=== PATIENT | male | born 1995 | race Caucasian/White ===

== ENCOUNTER 2022-09-13 08:09 | Emergency (ER) | payer MEDICAID ==
[~2022-09-13] VITALS: Ht 175.3 cm; Wt 70.0 kg
[2022-09-13 08:15] VITALS: BP 131/78
== END 2022-09-13 09:08 | disposition home or self-care (01) ==
LOC: ER 08:10
DX: Z00.00 Encounter for general adult medical examination without abnormal findings (principal); Z72.89 Other problems related to lifestyle
CPT/HCPCS: 99281

== ENCOUNTER 2022-12-10 07:53 | Inpatient (IN) | payer MEDICAID ==
[~2022-12-10] VITALS: Ht 175.3 cm; Wt 65.0 kg
[2022-12-10] MEDS ORDERED: ringers solution, lactated 500ml IV solution IV ONE (08:35)
[2022-12-10] MEDS ORDERED: LORazepam 2 mg/ml vial IV ONE ×2 (08:35→09:55)
[2022-12-10] MEDS ORDERED: ondansetron/PF 4mg/2ml inj IV ONE (08:50)
[2022-12-10] MEDS ORDERED: thiamine 100mg/ml 2ml inj. IV ONE (09:25)
[2022-12-10] MEDS ORDERED: folic acid 1mg/0.2ml inj IV ONE (09:25)
[2022-12-10] MEDS ORDERED: ringers solution, lacted 1,000 ML IV ONE (09:30)
[2022-12-10 09:45] LABS: BASOPHILS # (AUTO) 0.1 X10'3 (0-0.2); BASOPHILS % (AUTO) 0.8 % (0-1); EOSINOPHILS # (AUTO) 0.1 X10'3 (0-0.9); EOSINOPHILS % (AUTO) 1.4 % (0-6); HEMOGLOBIN 17.3 g/dl (14.0-17.9); LYMPHOCYTES # (AUTO) 2.2 X10'3 (1.1-4.8); LYMPHOCYTES % (AUTO) 30.3 % (21-51); MEAN CORPUSCULAR HEMOGLOBIN 33.3 PG (27.0-31.0); MEAN CORPUSCULAR HGB CONC 34.5 g/dL (33.0-36.5); MEAN CORPUSCULAR VOLUME 96.5 FL (78-98); MEAN PLATELET VOLUME 8.2 FL (7.4-10.4); MONOCYTES # (AUTO) 0.8 X10'3 (0-0.9); MONOCYTES % (AUTO) 10.3 % (2-12); NEUTROPHILS # (AUTO) 4.2 X10'3 (1.8-7.7); NEUTROPHILS % (AUTO) 57.2 % (42-75); PLATELET COUNT 247 X10'3 (140-440); RED BLOOD COUNT 5.18 X10'6 (4.70-6.10); RED CELL DISTRIBUTION WIDTH 13.4 % (11.5-14.5); WHITE BLOOD COUNT 7.3 X10'3 (4.5-11.0)
[2022-12-10 09:53] LABS: APTT 25 SECONDS (22-32); PROTHROMBIN TIME 9.8 SECONDS (9.0-12.0)
[2022-12-10 10:10] LABS: INR 0.9 INR
[2022-12-10] MEDS: ringers solution, lacted 1,000 ML IV SCH ×2 (10:59→11:07)
[2022-12-10 11:10] LABS: ALANINE AMINOTRANSFERASE 197 U/L (12-78); ALBUMIN 4.5 G/DL (3.4-5.0); ALBUMIN/GLOBULIN RATIO 1.3 (1.1-1.5); ALKALINE PHOSPHATASE 96 IU/L (46-116); ANION GAP 16 (8-16); ASPARTATE AMINO TRANSFERASE 218 U/L (10-37); BILIRUBIN,TOTAL 1.8 MG/DL (0.1-1.0); BLOOD UREA NITROGEN 16 MG/DL (7-18); BUN/CREATININE RATIO 20.8 (10.0-20.0); CALCIUM 9.9 MG/DL (8.5-10.1); CHLORIDE 91 MMOL/L (99-107); CREATININE 0.77 MG/DL (0.60-1.10); ETHANOL 98 MG/DL (<10); GLUCOSE 85 MG/DL (70-104); MAGNESIUM 2.3 MG/DL (1.5-2.4); PHOSPHORUS 2.8 MG/DL (2.3-4.5); SODIUM 132 MMOL/L (135-145); eCRCL 134 ML/MIN; eGFR > 90 ML/MIN
[2022-12-10 11:11] LABS: POTASSIUM 2.8 MMOL/L (3.5-5.1)
[2022-12-10] MEDS ORDERED: potassium phosphate inj 30 MMOL in normal saline 250ml IV soln 250 ML IV ONE (11:25)
[2022-12-10] MEDS: ondansetron/PF 4mg/2ml inj IV SCH ×3 (12:00→20:00)
[2022-12-10] MEDS ORDERED: mag hydrox/Alum hydrox/simeth 30ml oral suspension PO PRN ×2 (12:55→13:00)
[2022-12-10] MEDS ORDERED: haloperidol lactate 5mg/ml inj IM PRN (12:55)
[2022-12-10] MEDS ORDERED: magnesium 2GM in 50ml NS 50 ML IV PRN (13:00)
[2022-12-10] MEDS ORDERED: magnesium 4gm in 100ml NS 100 ML IV PRN (13:00)
[2022-12-10] MEDS ORDERED: magnesium hydroxide 30ml (MOM) UD suspension PO PRN (13:00)
[2022-12-10] MEDS ORDERED: acetaminophen 325mg tablet PO PRN (13:00)
[2022-12-10] MEDS ORDERED: magnesium Cl slow-release 64mg tablet PO PRN (13:00)
[2022-12-10] MEDS ORDERED: potassium Cl 40MEQ/1/2NS 520ml 520 ML IV PRN (13:00)
[2022-12-10] MEDS ORDERED: potassium Cl 20 mEq SR tablet PO PRN (13:00)
[2022-12-10] MEDS ORDERED: ondansetron/PF 4mg/2ml inj IV PRN (13:00)
[2022-12-10] MEDS: dextrose 5%-water 1,000 ML IV SCH ×2 (13:10→23:23)
[2022-12-10 13:16] LABS: URINE AMPHETAMINE SCREEN NEGATIVE (Neg); URINE BARBITUATE SCREEN NEGATIVE (Neg); URINE BENZODIAZEPINES SCREEN NEGATIVE (Neg); URINE CANNABINOID SCREEN POSITIVE (Neg); URINE COCAINE SCREEN NEGATIVE (Neg); URINE METHADONE SCREEN NEGATIVE (Neg); URINE OPIATE SCREEN NEGATIVE (Neg); URINE PHENCYCLIDINE SCREEN NEGATIVE (Neg)
--- NOTE | 2022-12-10 13:37 | NUR ---
[id number] RECEIVED REPORT FROM LUIZA RN ASSUMING CARE DURING 30 MIN LUNCH BREAK
[2022-12-10] MEDS: thiamine 100mg/ml 2ml inj. IV SCH ×2 (13:51→21:35)
[2022-12-10] MEDS: pantoprazole 40MG/NS 100ML BAG 100 ML IV SCH (13:53)
[2022-12-10] MEDS ORDERED: NO HOME MEDS (14:24)
[2022-12-10 14:58] LABS: HEMOGLOBIN 14.5 g/dl (14.0-17.9); MEAN CORPUSCULAR HEMOGLOBIN 33.6 PG (27.0-31.0); MEAN CORPUSCULAR HGB CONC 34.6 g/dL (33.0-36.5); MEAN CORPUSCULAR VOLUME 96.9 FL (78-98); MEAN PLATELET VOLUME 7.9 FL (7.4-10.4); PLATELET COUNT 176 X10'3 (140-440); RED BLOOD COUNT 4.33 X10'6 (4.70-6.10); RED CELL DISTRIBUTION WIDTH 13.3 % (11.5-14.5); WHITE BLOOD COUNT 7.4 X10'3 (4.5-11.0)
--- NOTE | 2022-12-10 16:27 | NUR ---
REPORT ATTEMPTED, SHRUTHI HARTMAN TO CALL BACK FOR REPORT
--- NOTE | 2022-12-10 16:56 | NUR ---
Thao blevins in [facility] - 12/10/22 at 1657 by DAKOTA REPORT GIVEN TO SHRUTHI HARTMAN PT TO GO TO ROOM [facility]5G
--- NOTE | 2022-12-10 16:58 | NUR ---
REPORT GIVEN TO SHRUTHI HARTMAN, PT TO GO TO ROOM [id number]
[2022-12-10] MEDS: potassium Cl 20 mEq SR tablet PO PRN ×2 (17:13→21:35)
[2022-12-10] MEDS: LORazepam 2 mg/ml vial IV PRN ×3 (17:21→23:23)
--- NOTE | 2022-12-10 17:45 | NUR ---
Patient arrived to unit via wheelchair. Patient made comfortable in bed, Tele monitor on, skin check done, suction in room for seizures. Call light in place rails up x3, water for patient on bedside table
[2022-12-10 18:00] VITALS: BP 158/111; PULSE 98; RESP 15; TEMP 98.9; O2SAT 95
--- NOTE | 2022-12-10 18:48 | NUR ---
Problems reprioritized. Patient report given, questions answered & plan of care reviewed with Nguyen HAWKINS.
[2022-12-10 18:59] LABS: HEMATOCRIT 43.2 % (42.0-52.0); HEMOGLOBIN 14.9 g/dl (14.0-17.9); MEAN CORPUSCULAR HEMOGLOBIN 33.5 PG (27.0-31.0); MEAN CORPUSCULAR HGB CONC 34.4 g/dL (33.0-36.5); MEAN CORPUSCULAR VOLUME 97.3 FL (78-98); MEAN PLATELET VOLUME 8.1 FL (7.4-10.4); PLATELET COUNT 173 X10'3 (140-440); RED BLOOD COUNT 4.44 X10'6 (4.70-6.10); RED CELL DISTRIBUTION WIDTH 13.1 % (11.5-14.5); WHITE BLOOD COUNT 7.1 X10'3 (4.5-11.0)
[2022-12-10] MEDS: docusate sod 100mg capsule PO SCH (19:38)
[2022-12-10] MEDS: enoxaparin 40mg/0.4ml syringe SQ SCH (19:41)
[2022-12-10 20:00] VITALS: RESP 15; O2SAT 95
[2022-12-10] MEDS: K and/or MAG REPLACEMENT MC SCH (20:33)
[2022-12-10 21:18] LABS: HEMOGLOBIN 15.3 g/dl (14.0-17.9); MEAN CORPUSCULAR HEMOGLOBIN 33.3 PG (27.0-31.0); MEAN CORPUSCULAR HGB CONC 34.7 g/dL (33.0-36.5); MEAN CORPUSCULAR VOLUME 96.1 FL (78-98); MEAN PLATELET VOLUME 7.7 FL (7.4-10.4); PLATELET COUNT 165 X10'3 (140-440); RED BLOOD COUNT 4.57 X10'6 (4.70-6.10); RED CELL DISTRIBUTION WIDTH 13.2 % (11.5-14.5); WHITE BLOOD COUNT 7.4 X10'3 (4.5-11.0)
[2022-12-10 22:00] VITALS: BP 158/97; PULSE 103; RESP 16; TEMP 98.2; O2SAT 98
[2022-12-11] VITALS (8 sets, daily range): BP systolic 136–147; BP diastolic 91–101; PULSE 83–99; RESP 15–19; TEMP 97–98.5; O2SAT 95–98
[2022-12-11] MEDS: potassium Cl 20 mEq SR tablet PO PRN (01:16)
[2022-12-11] MEDS: LORazepam 2 mg/ml vial IV PRN ×7 (01:17→23:56)
[2022-12-11 01:35] LABS: HEMATOCRIT 46.1 % (42.0-52.0); MEAN CORPUSCULAR HEMOGLOBIN 33.4 PG (27.0-31.0); MEAN CORPUSCULAR HGB CONC 34.7 g/dL (33.0-36.5); MEAN CORPUSCULAR VOLUME 96.4 FL (78-98); MEAN PLATELET VOLUME 7.9 FL (7.4-10.4); PLATELET COUNT 174 X10'3 (140-440); RED BLOOD COUNT 4.78 X10'6 (4.70-6.10); RED CELL DISTRIBUTION WIDTH 13.5 % (11.5-14.5); WHITE BLOOD COUNT 7.4 X10'3 (4.5-11.0)
--- NOTE | 2022-12-11 02:26 | NUR ---
MD notified about pt BP being elevated. MD stated to continue to monitor, no concerns or orders as of now.
[2022-12-11] MEDS: ondansetron/PF 4mg/2ml inj IV SCH ×6 (04:00→18:51)
--- NOTE | 2022-12-11 06:49 | NUR ---
Problems reprioritized. Patient report given, questions answered & plan of care reviewed with Maureen HAWKINS.
[2022-12-11 07:32] LABS: BASOPHILS % (AUTO) 0.5 % (0-1); EOSINOPHILS # (AUTO) 0.6 X10'3 (0-0.9); EOSINOPHILS % (AUTO) 8.8 % (0-6); HEMATOCRIT 45.9 % (42.0-52.0); HEMOGLOBIN 15.9 g/dl (14.0-17.9); LYMPHOCYTES # (AUTO) 1.5 X10'3 (1.1-4.8); LYMPHOCYTES % (AUTO) 21.3 % (21-51); MEAN CORPUSCULAR HEMOGLOBIN 33.6 PG (27.0-31.0); MEAN CORPUSCULAR HGB CONC 34.6 g/dL (33.0-36.5); MEAN PLATELET VOLUME 7.9 FL (7.4-10.4); MONOCYTES # (AUTO) 0.7 X10'3 (0-0.9); MONOCYTES % (AUTO) 9.6 % (2-12); NEUTROPHILS # (AUTO) 4.1 X10'3 (1.8-7.7); NEUTROPHILS % (AUTO) 59.8 % (42-75); PLATELET COUNT 174 X10'3 (140-440); RED BLOOD COUNT 4.73 X10'6 (4.70-6.10); RED CELL DISTRIBUTION WIDTH 13.4 % (11.5-14.5); WHITE BLOOD COUNT 6.9 X10'3 (4.5-11.0)
[2022-12-11 07:36] LABS: PROTHROMBIN TIME 10.3 SECONDS (9.0-12.0)
[2022-12-11 07:59] LABS: ALANINE AMINOTRANSFERASE 186 U/L (12-78); ALBUMIN 3.7 G/DL (3.4-5.0); ALBUMIN/GLOBULIN RATIO 1.2 (1.1-1.5); ALKALINE PHOSPHATASE 87 IU/L (46-116); AMYLASE 90 U/L (25-115); ANION GAP 9 (8-16); ASPARTATE AMINO TRANSFERASE 223 U/L (10-37); BILIRUBIN,TOTAL 2.3 MG/DL (0.1-1.0); BLOOD UREA NITROGEN 13 MG/DL (7-18); BUN/CREATININE RATIO 18.8 (10.0-20.0); CALCIUM 9.2 MG/DL (8.5-10.1); CHLORIDE 95 MMOL/L (99-107); CREATININE 0.69 MG/DL (0.60-1.10); GLUCOSE 112 MG/DL (70-104); MAGNESIUM 2.1 MG/DL (1.5-2.4); PHOSPHORUS 3.7 MG/DL (2.3-4.5); POTASSIUM 3.8 MMOL/L (3.5-5.1); SODIUM 130 MMOL/L (135-145); TOTAL CARBON DIOXIDE 25.6 MMOL/L (24-32); TOTAL PROTEIN 6.9 G/DL (6.4-8.2); eCRCL 149 ML/MIN; eGFR > 90 ML/MIN
[2022-12-11] MEDS: K and/or MAG REPLACEMENT MC SCH ×2 (08:00→20:00)
[2022-12-11] MEDS: dextrose 5%-water 1,000 ML IV SCH ×3 (08:44→20:13)
[2022-12-11] MEDS: folic acid 1mg/0.2ml inj IV SCH (08:45)
[2022-12-11] MEDS: pantoprazole 40MG/NS 100ML BAG 100 ML IV SCH (08:45)
[2022-12-11] MEDS: nicotine 21mg patch - 24 hr TD SCH (08:45)
[2022-12-11] MEDS: multivitamins, therapeutics tablet PO SCH (08:45)
[2022-12-11] MEDS: thiamine 100mg/ml 2ml inj. IV SCH ×3 (08:46→21:42)
[2022-12-11] MEDS: docusate sod 100mg capsule PO SCH ×2 (09:04→20:00)
[2022-12-11] MEDS: haloperidol 5mg tablet PO PRN (17:13)
--- NOTE | 2022-12-11 18:35 | NUR ---
GAVE REPORT TO DERIC HAWKINS.
[2022-12-11] MEDS: enoxaparin 40mg/0.4ml syringe SQ SCH (21:42)
[2022-12-12] MEDS: LORazepam 2 mg/ml vial IV PRN ×3 (01:54→08:27)
[2022-12-12 02:00] VITALS: BP 129/83; PULSE 98; RESP 16; TEMP 98.4; O2SAT 97
[2022-12-12] MEDS: haloperidol 5mg tablet PO PRN (03:58)
[2022-12-12] MEDS: ondansetron/PF 4mg/2ml inj IV SCH ×4 (04:00→12:00)
[2022-12-12 06:00] VITALS: BP 129/85; PULSE 81; RESP 18; TEMP 98.6; O2SAT 97
--- NOTE | 2022-12-12 06:27 | NUR ---
Problems reprioritized. Patient report given, questions answered & plan of care reviewed with Myriam HAWKINS.
[2022-12-12 07:55] LABS: BASOPHILS % (AUTO) 0.4 % (0-1); EOSINOPHILS # (AUTO) 0.7 X10'3 (0-0.9); EOSINOPHILS % (AUTO) 9.3 % (0-6); HEMATOCRIT 47.1 % (42.0-52.0); HEMOGLOBIN 16.3 g/dl (14.0-17.9); LYMPHOCYTES # (AUTO) 1.8 X10'3 (1.1-4.8); LYMPHOCYTES % (AUTO) 22.1 % (21-51); MEAN CORPUSCULAR HEMOGLOBIN 33.6 PG (27.0-31.0); MEAN CORPUSCULAR HGB CONC 34.7 g/dL (33.0-36.5); MEAN PLATELET VOLUME 8.3 FL (7.4-10.4); MONOCYTES # (AUTO) 0.7 X10'3 (0-0.9); MONOCYTES % (AUTO) 8.8 % (2-12); NEUTROPHILS # (AUTO) 4.7 X10'3 (1.8-7.7); NEUTROPHILS % (AUTO) 59.4 % (42-75); PLATELET COUNT 188 X10'3 (140-440); RED BLOOD COUNT 4.85 X10'6 (4.70-6.10); RED CELL DISTRIBUTION WIDTH 13.3 % (11.5-14.5)
[2022-12-12] MEDS: folic acid 1mg/0.2ml inj IV SCH (08:00)
[2022-12-12] MEDS: K and/or MAG REPLACEMENT MC SCH (08:00)
[2022-12-12] MEDS: docusate sod 100mg capsule PO SCH (08:00)
[2022-12-12 08:10] LABS: INR 0.9 INR; PROTHROMBIN TIME 10.2 SECONDS (9.0-12.0)
[2022-12-12 08:27] LABS: ALANINE AMINOTRANSFERASE 251 U/L (12-78); ALBUMIN 3.8 G/DL (3.4-5.0); ALBUMIN/GLOBULIN RATIO 1.1 (1.1-1.5); ALKALINE PHOSPHATASE 94 IU/L (46-116); AMYLASE 86 U/L (25-115); ANION GAP 9 (8-16); ASPARTATE AMINO TRANSFERASE 247 U/L (10-37); BILIRUBIN,TOTAL 1.2 MG/DL (0.1-1.0); BLOOD UREA NITROGEN 15 MG/DL (7-18); BUN/CREATININE RATIO 19.7 (10.0-20.0); CALCIUM 9.3 MG/DL (8.5-10.1); CHLORIDE 97 MMOL/L (99-107); CREATININE 0.76 MG/DL (0.60-1.10); GLUCOSE 103 MG/DL (70-104); MAGNESIUM 2.6 MG/DL (1.5-2.4); PHOSPHORUS 4.4 MG/DL (2.3-4.5); POTASSIUM 3.6 MMOL/L (3.5-5.1); SODIUM 133 MMOL/L (135-145); TOTAL CARBON DIOXIDE 26.6 MMOL/L (24-32); TOTAL PROTEIN 7.2 G/DL (6.4-8.2); eCRCL 135 ML/MIN; eGFR > 90 ML/MIN
[2022-12-12] MEDS: nicotine 21mg patch - 24 hr TD SCH (08:27)
[2022-12-12] MEDS: thiamine 100mg/ml 2ml inj. IV SCH ×2 (08:28→12:22)
[2022-12-12] MEDS: multivitamins, therapeutics tablet PO SCH (08:28)
[2022-12-12] MEDS ORDERED: PANT40TA54 PO (12:20)
[2022-12-12] MEDS ORDERED: thiamine tablet PO (12:20)
[2022-12-12] MEDS ORDERED: FOLI1TAB27 PO (12:20)
[2022-12-12] MEDS ORDERED: MULT-25 PO (12:20)
[2022-12-12] MEDS ORDERED: THIA100T73 PO (12:24)
[2022-12-12] MEDS ORDERED: LORazepam 1 MG tablet PO PRN (12:55)
[2022-12-12] MEDS ORDERED: LORazepam 2 mg/ml vial IV PRN (12:55)
--- NOTE | 2022-12-12 12:58 | NUR ---
pt walking down hallway fully dressed and ready to leave. SHRUTHI Yang is taking IV out and will give pt discharge paperwork.
[2022-12-12] MEDS ORDERED: LORA-269 PO (13:58)
[2022-12-13] MEDS ORDERED: pantoprazole 40mg Tablet.DR PO SCH (07:30)
[2022-12-14] MEDS ORDERED: thiamine 100mg tablet PO SCH (08:00)
[2022-12-14] MEDS ORDERED: folic acid 1mg tablet PO SCH (08:00)
[2022-12-14] MEDS ORDERED: LORazepam 1 MG tablet PO PRN (12:55)
[2022-12-14] MEDS ORDERED: LORazepam 2 mg/ml vial IV PRN (12:55)
== END 2022-12-12 13:12 | disposition home or self-care (01) | DRG 775 ==
LOC: ER 07:53 → PCU 3S 13:05
PROVIDERS: ADMIT Family Medicine; ATTEND Family Medicine
DX: F10.939 Alcohol use, unspecified with withdrawal, unspecified (principal); K92.0 Hematemesis; R56.9 Unspecified convulsions; R44.1 Visual hallucinations; E87.6 Hypokalemia; Z87.891 Personal history of nicotine dependence
CPT/HCPCS: 36415; 71045; 80053; 80305; 80320; 82150; 82948; 83735; 84100; 84484; 85025; 85027; 85610; 85730; 87081; 93005; 99285; C9113; G0378; J1650; J2060; J2405; J3411; J3490; J7050; J7070; J7120

== ENCOUNTER 2023-12-02 08:38 | Emergency (ER) | payer MEDICAID ==
[~2023-12-02] VITALS: Ht 172.7 cm; Wt 65.9 kg
[~2023-12-02 08:38] MED LIST: FOLI1TAB27 PO; LORA-269 PO; MULT-25 PO; PANT40TA54 PO; THIA100T73 PO
[2023-12-02] MEDS ORDERED: NORMAL SALINE IV ONE (09:00)
[2023-12-02] MEDS: normal saline 1000ML IV soln IVB ONE ×2 (09:00→10:33)
[2023-12-02] MEDS ORDERED: PHENOBARBITAL IV ONE (09:00)
[2023-12-02 09:28] LABS: BASOPHILS % (AUTO) 0.5 % (0-1); EOSINOPHILS % (AUTO) 0.3 % (0-6); HEMATOCRIT 49.9 % (42.0-52.0); LYMPHOCYTES # (AUTO) 1.7 X10'3 (1.1-4.8); LYMPHOCYTES % (AUTO) 19.9 % (21-51); MEAN CORPUSCULAR HEMOGLOBIN 32.3 PG (27.0-31.0); MEAN CORPUSCULAR HGB CONC 34.1 g/dL (33.0-36.5); MEAN CORPUSCULAR VOLUME 94.7 FL (78-98); MEAN PLATELET VOLUME 7.3 FL (7.4-10.4); MONOCYTES # (AUTO) 0.4 X10'3 (0-0.9); MONOCYTES % (AUTO) 5.1 % (2-12); NEUTROPHILS # (AUTO) 6.5 X10'3 (1.8-7.7); NEUTROPHILS % (AUTO) 74.2 % (42-75); PLATELET COUNT 382 X10'3 (140-440); RED BLOOD COUNT 5.27 X10'6 (4.70-6.10); WHITE BLOOD COUNT 8.7 X10'3 (4.5-11.0)
[2023-12-02 09:37] LABS: ALANINE AMINOTRANSFERASE 53 U/L (12-78); ALBUMIN 4.8 G/DL (3.4-5.0); ALBUMIN/GLOBULIN RATIO 1.4 (1.1-1.5); ALKALINE PHOSPHATASE 97 IU/L (46-116); ANION GAP 23 (8-16); ASPARTATE AMINO TRANSFERASE 43 U/L (10-37); BILIRUBIN,TOTAL 0.8 MG/DL (0.1-1.0); BLOOD UREA NITROGEN 12 MG/DL (7-18); BUN/CREATININE RATIO 13.2 (10.0-20.0); CALCIUM 9.8 MG/DL (8.5-10.1); CHLORIDE 98 MMOL/L (99-107); CREATININE 0.91 MG/DL (0.60-1.10); ETHANOL 52 MG/DL (<10); GLUCOSE 83 MG/DL (70-104); MAGNESIUM 1.5 MG/DL (1.5-2.4); POTASSIUM 3.9 MMOL/L (3.5-5.1); SODIUM 140 MMOL/L (135-145); TOTAL CARBON DIOXIDE 19.3 MMOL/L (24-32); TOTAL PROTEIN 8.3 G/DL (6.4-8.2); eCRCL 114 ML/MIN; eGFR > 90 ML/MIN
[2023-12-02] MEDS: ondansetron/PF 4mg/2ml inj IV ONE (09:41)
[2023-12-02] MEDS: phenobarbital inj 260 MG in normal saline 100ml IV soln IV ONE (09:41)
[2023-12-02] MEDS ORDERED: phenobarbital sod 130mg/ml inj. IV ONE (10:30)
[2023-12-02] MEDS: phenobarbital inj 260 MG in normal saline 100ml IV soln 98 ML IV SCH (11:05)
[2023-12-02] MEDS: LORazepam 2 mg/ml vial IV ONE ×2 (12:41→13:45)
[2023-12-02 16:39] VITALS: TEMP 96.8
[2023-12-02] MEDS ORDERED: DIAZ10TA4 PO (17:37)
[2023-12-02 18:54] VITALS: BP 133/75; PULSE 89; RESP 16; O2SAT 99
[2023-12-02] MEDS ORDERED: phenobarbital inj 260 MG in normal saline 100ml IV soln IV SCH (20:00)
== END 2023-12-02 18:59 | disposition home or self-care (01) ==
LOC: ER 08:38
DX: F10.239 Alcohol dependence with withdrawal, unspecified (principal); Z79.899 Other long term (current) drug therapy; Y90.9 Presence of alcohol in blood, level not specified
CPT/HCPCS: 36415; 80053; 80320; 83735; 85025; 96361; 96365; 96366; 96375; 96376; 99285; J2060; J2405; J2560; J7030

== ENCOUNTER 2024-05-27 19:36 | Emergency (ER) | payer MEDICAID ==
[~2024-05-27] VITALS: Ht 175.3 cm; Wt 63.6 kg
[~2024-05-27 19:36] MED LIST changes: +DIAZ10TA4 PO
[2024-05-27] MEDS ORDERED: pantoprazole 40mg IV 80 MG in normal saline 100ml IV soln 100 ML IV ONE (20:10)
[2024-05-27 20:27] LABS: BASOPHILS % (AUTO) 0.3 % (0-1); EOSINOPHILS # (AUTO) 0.1 X10'3 (0-0.9); EOSINOPHILS % (AUTO) 1.3 % (0-6); HEMATOCRIT 49.9 % (42.0-52.0); LYMPHOCYTES # (AUTO) 3.2 X10'3 (1.1-4.8); LYMPHOCYTES % (AUTO) 31.4 % (21-51); MEAN CORPUSCULAR HEMOGLOBIN 32.5 PG (27.0-31.0); MEAN CORPUSCULAR VOLUME 95.5 FL (78-98); MEAN PLATELET VOLUME 6.6 FL (7.4-10.4); MONOCYTES # (AUTO) 0.5 X10'3 (0-0.9); MONOCYTES % (AUTO) 4.5 % (2-12); NEUTROPHILS # (AUTO) 6.4 X10'3 (1.8-7.7); NEUTROPHILS % (AUTO) 62.5 % (42-75); PLATELET COUNT 415 X10'3 (140-440); RED BLOOD COUNT 5.22 X10'6 (4.70-6.10); RED CELL DISTRIBUTION WIDTH 13.4 % (11.5-14.5); WHITE BLOOD COUNT 10.2 X10'3 (4.5-11.0)
[2024-05-27] MEDS: normal saline 1000ML IV soln IVB ONE ×2 (20:37→22:46)
[2024-05-27] MEDS: ondansetron/PF 4mg/2ml inj IV ONE (20:39)
[2024-05-27 20:41] LABS: PROTHROMBIN TIME 10.5 SECONDS (9.0-12.0)
[2024-05-27] MEDS: pantoprazole 40 MG vial IV ONE (20:41)
[2024-05-27 20:42] LABS: APTT 22 SECONDS (22-32)
[2024-05-27 20:44] LABS: ALANINE AMINOTRANSFERASE 35 U/L (12-78); ALBUMIN 4.7 G/DL (3.4-5.0); ALBUMIN/GLOBULIN RATIO 1.3 (1.1-1.5); ALKALINE PHOSPHATASE 93 IU/L (46-116); ANION GAP 20 (8-16); ASPARTATE AMINO TRANSFERASE 30 U/L (10-37); BILIRUBIN,TOTAL 0.5 MG/DL (0.1-1.0); BLOOD UREA NITROGEN 12 MG/DL (7-18); BUN/CREATININE RATIO 17.6 (10.0-20.0); CALCIUM 8.9 MG/DL (8.5-10.1); CHLORIDE 102 MMOL/L (99-107); CREATININE 0.68 MG/DL (0.60-1.10); ETHANOL 233 MG/DL (<10); GLUCOSE 79 MG/DL (70-104); LIPASE 32 U/L (16-77); MAGNESIUM 1.8 MG/DL (1.5-2.4); POTASSIUM 3.4 MMOL/L (3.5-5.1); SODIUM 143 MMOL/L (135-145); TOTAL CARBON DIOXIDE 21.5 MMOL/L (24-32); TOTAL PROTEIN 8.2 G/DL (6.4-8.2); eCRCL 147 ML/MIN; eGFR > 90 ML/MIN
[2024-05-27] MEDS: chlordiazePOXIDE 25mg capsule PO ONE (22:23)
[2024-05-27] MEDS ORDERED: CHLO25CA10 PO (22:29)
[2024-05-27] MEDS ORDERED: PANT20TA2 PO (22:29)
[2024-05-27 23:12] VITALS: PULSE 98; O2SAT 100
[2024-05-27 23:17] VITALS: RESP 18
[2024-05-27 23:43] VITALS: BP 127/69; TEMP 98.3
== END 2024-05-27 23:51 | disposition home or self-care (01) ==
LOC: ER 19:36
DX: F10.129 Alcohol abuse with intoxication, unspecified (principal); K92.0 Hematemesis; Y90.9 Presence of alcohol in blood, level not specified
CPT/HCPCS: 36415; 71045; 80053; 80320; 82948; 83690; 83735; 85025; 85610; 85730; 86885; 86900; 86901; 93005; 96361; 96374; 96375; 99285; J2405; J2470; J7030

== ENCOUNTER 2024-10-28 15:24 | Inpatient (IN) | payer MEDICAID ==
[~2024-10-28] VITALS: Ht 175.3 cm; Wt 70.5 kg
[~2024-10-28 15:24] MED LIST changes: +CHLO25CA10 PO; +PANT20TA2 PO; -THIA100T73 PO; +THIA100T77 PO
[2024-10-28] MEDS: ondansetron/PF 4mg/2ml inj IV ONE (15:40)
[2024-10-28] MEDS: normal saline 1000ml 1,000 ML IV ONE ×2 (15:43→16:29)
--- NOTE | 2024-10-28 15:43 | ELECTROCARDIOGRAPH REPORT ---
[facility] Test Date: 2024-10-28 Test Time: 15:32:50 Pat Name: AARON DAVIS Department: EMERGENCY ROOM [id number] Room: Gender: M Nurse Unit Manager: ELLE : 1995 Requested By: ANTONIETA HARPER Order Number: [id number] Reading MD: Measurements Intervals [place] Rate: 146 P: 85 CA: 142 QRS: 83 QRSD: 81 T: -66 QT: 322 QTc: 502 Interpretive Statements Atrial-paced complexes LAE, consider biatrial enlargement Nonspecific T abnormalities, diffuse leads Prolonged QT interval Please click the below link to view image of tracing.
[2024-10-28 15:52] LABS: MEAN PLATELET VOLUME 6.8 FL (7.4-10.4); RED CELL DISTRIBUTION WIDTH 13.2 % (11.5-14.5)
--- NOTE | 2024-10-28 15:58 | Physician Documentation ---
History of Present Illness ~ Chief Complaint: Seizure Stated Complaint: SZ Time Seen by MD: 15:42 Primary Medical Doctor: none HPI 29-year-old male, history of alcohol abuse, who presents with a witnessed seizure History obtained from the patient and his girlfriend. His girlfriend states that she saw him have a tonic-clonic type seizure, after which he was very confused. This lasted for 10 minutes or less. She drove him here to the emergency department. The patient tells me that he drinks a large amount alcohol daily. He has not had any alcohol for 2 days. He reports feeling nauseous, anxious, and generally terrible. He does have a history of withdrawal including seizures in the past. He also reports a history of seizures and thinks that he takes a seizure medication although he does not know the name. He denies any fevers or other infectious symptoms. He denies any significant abdominal pain. Medication Reconciliation Allergies: Coded Allergies: No Known Allergies (Unverified , 05/27/24) Scheduled Folic Acid* (Folic Acid*), 1 MG PO DAILY Lorazepam (Ativan), 1 TAB PO Q8H Multivitamin with Folic Acid (Thera Tablet), 1 EACH PO Q24H Pantoprazole Sodium (Pantoprazole Sodium), 40 MG PO BKF Pantoprazole Sodium (Protonix), 1 TAB PO DAILY Thiamine HCl (B-1), 1 TAB PO DAILY Scheduled PRN Chlordiazepoxide Hcl (Librium), 1 CAP PO QID PRN for anxiety Diazepam (Diazepam), 1 TAB PO As instructed PRN for anxiety Past Medical History Past Medical History: No Pertinent History Past Surgical History: no surgical history Patient History: FH: lupus Lupus Alcohol Use: Heavy Lives with: Family Lives In: Home Review of Systems Constitutional: Denies: fever Gastrointestinal: Reports: nausea Neurological: Reports: tonic-clonic seizures Physical Exam Vital Signs: Heart Rate: 139, Respiratory Rate: 22, BP: 158/107, Pulse Oximetry: 97, Weight: 70.450 Oxygen Flow Rate: 0 Physical Exam General: This is a thin anxious appearing young man, tremulous, girlfriend at bedside HEENT: Atraumatic, oropharynx is dry, positive tongue fasciculations, no tongue laceration Heart: Significant tachycardic, appears regular Lungs: Clear breath sounds bilateral, normal work of breathing, normal oxygen saturation on room air Abdomen: Soft, nondistended, mild discomfort on palpation in the epigastric region only, otherwise nontender Extremities: Warm and well-perfused, no traumatic findings Neuro: Alert and oriented Psychiatric: Anxious, tearful, tremulous Progress Results/Orders Results/Orders Orders - ANTONIETA HARPER MD Page Hospitalist (10/28/24 16:52) Completed Orders - ANTONIETA HARPER MD Electrocardiogram (10/28/24 ) Normal Saline 1000ml (0.9% Sodium Chlori (10/28/24 15:35) Lorazepam Inj (Ativan Inj) (10/28/24 15:35) Ondansetron Inj. (Zofran 4mg/2ml Vial) (10/28/24 15:35) Cbc/Diff (10/28/24 15:42) CMP (10/28/24 15:42) Ethanol (10/28/24 15:42) Lipase (10/28/24 15:42) Normal Saline 1000ml (0.9% Sodium Chlori (10/28/24 15:55) Lorazepam Inj (Ativan Inj) (10/28/24 15:55) Drug Screen, Urine (10/28/24 16:50) Diazepam Inj (Valium Inj) (10/28/24 16:55) MG (10/28/24 15:40) Ua W/Microscopic, Cult If Ind (10/28/24 16:40) Medications Received in ER Medications (Trade) Dose Ordered Sig/Prateek Route PRN Reason Start Time Stop Time Status Last Admin Dose Admin Sodium Chloride 1,000 ml @ 1,000 mls/hr ONCE ONCE IV 10/28/24 15:35 10/28/24 16:34 DC 10/28/24 15:43 1,000 MLS/HR (Ativan inj) 2 mg ONCE ONCE IV 10/28/24 15:35 10/28/24 15:37 DC 10/28/24 15:41 2 MG (Zofran 4mg/2ml vial) 4 mg ONCE ONCE IV 10/28/24 15:35 10/28/24 15:37 DC 10/28/24 15:40 4 MG Sodium Chloride 1,000 ml @ 1,000 mls/hr ONCE ONCE IV 10/28/24 15:55 10/28/24 16:54 DC 10/28/24 16:29 1,000 MLS/HR (Ativan inj) 2 mg ONCE ONCE IV 10/28/24 15:55 10/28/24 15:56 DC 10/28/24 16:21 2 MG (Valium inj) 10 mg ONCE ONCE IV 10/28/24 16:55 10/28/24 16:56 DC 10/28/24 17:01 10 MG Vital Signs 10/28/24 10/28/24 10/28/24 10/28/24 15:27 15:46 16:55 17:29 Pulse 152 139 112 Resp 16 22 18 B/P (MAP) 158/17 158/107 (124) 140/107 (118) Pulse Ox 96 97 96 O2 Flow Rate 0 0 0 10/28/24 17:54 Pulse 109 Resp 18 B/P (MAP) 121/80 (94) Pulse Ox 96 O2 Flow Rate 0 Laboratory Tests Test 10/28/24 15:40 10/28/24 16:40 White Blood Count 15.1 H Red Blood Count 5.14 Hemoglobin 17.2 Hematocrit 48.7 Mean Corpuscular Volume 94.7 Mean Corpuscular Hemoglobin 33.5 H Mean Corpuscular Hemoglobin Concent 35.4 Red Cell Distribution Width 13.2 Platelet Count 438 Mean Platelet Volume 6.8 L Neutrophils (%) (Auto) 66.6 Lymphocytes (%) (Auto) 26.2 Monocytes (%) (Auto) 5.2 Eosinophils (%) (Auto) 1.3 Basophils (%) (Auto) 0.7 Neutrophils # (Auto) 10.0 H Lymphocytes # (Auto) 4.0 Monocytes # (Auto) 0.8 Eosinophils # (Auto) 0.2 Basophils # (Auto) 0.1 CBC Comment Sodium Level 142 Potassium Level 3.3 L Chloride Level 100 Carbon Dioxide Level 25.5 Anion Gap 17 H Blood Urea Nitrogen 5 L Creatinine 0.82 Estimated GFR/1.73 m2 > 90 BUN/Creatinine Ratio 6.1 L Glucose Level 101 Calcium Level 8.7 Magnesium Level 2.0 Total Bilirubin 0.8 Aspartate Amino Transf (AST/SGOT) 46 H Alanine Aminotransferase (ALT/SGPT) 45 Alkaline Phosphatase 101 Total Protein 8.2 Albumin 4.6 Globulin 3.6 Albumin/Globulin Ratio 1.3 Lipase 26 Chemistry Comments Ethyl Alcohol Level 389 H Urine Specimen Description Urinal Urine Color Yellow Urine Clarity Clear Urine pH 7.0 Urine Specific [place] 1.010 Urine Protein Trace Urine Glucose (UA) Negative Urine Ketones Negative Urine Occult Blood Negative Urine Nitrite Negative Urine Bilirubin Negative Urine Urobilinogen 1.0 Urine Leukocyte Esterase Negative Urine RBC 0-2 Urine WBC None seen Urine Squamous Epithelial Cells Few Urine Amorphous Phosphates 1+ Urine Bacteria Few Urine Hyaline Casts 0-3 Urine Mucus Few Urine Culture Indicated Not ind Volume Urine Centrifuged 10 ml Urine Comment Urine Opiates Screen Negative Urine Methadone Screen Negative Urine Fentanyl Screen Negative Urine Barbiturates Screen Positive Urine Phencyclidine Screen Negative Urine Amphetamines Screen Negative Urine Benzodiazepines Screen Positive Urine Cocaine Screen Negative Urine Cannabinoids Screen Positive Drug Screen Comment EKG/XRAY/CT/US/VASC/MRI EKG : Additional Comment I personally interpreted the EKG and this shows: Neuro complex tachycardia, likely sinus, rate 146, QTC 502, no STEMI Consults/PCP Consults/PCP : Additional Comment Consult: I spoke to the internal medicine service, for admission in the hospital Medical Decision Making Differential Dx:Considerations: Include: Psychogenic seizure, Due to alcohol withdrawl, Anticonvulsant withdrawl, Due to closed head injury, Due to drug ingestion, Due to hyponatremia, Epilepsy-break through Assessment 29-year-old male presenting with a witnessed seizure. Per his history and exam this appears most consistent with an alcohol withdrawal seizure, and he reports not drinking for 2 days. He was given aggressive IV fluid hydration as well as Ativan and Valium. He does have mild hypokalemia, and later his alcohol level does return elevated. After treatment he appeared much improved. He will be admitted to medicine service for further treatment. Departure Impression: Primary Impression: Alcohol withdrawal syndrome Referrals: NO PRIMARY CARE PROVIDER (PCP) Signature Scribe Signature: na Attestation: ANTONIETA Camp MD Oct 28, 2024 15:58
[2024-10-28 16:10] LABS: CREATININE 0.82 MG/DL (0.60-1.10); TOTAL CARBON DIOXIDE 25.5 MMOL/L (24-32); eCRCL 134 ML/MIN; eGFR > 90 ML/MIN
[2024-10-28 16:56] LABS: ETHANOL 389 MG/DL (<10)
[2024-10-28] MEDS: diazepam inj 5 MG/ML inj. IV ONE (17:01)
[2024-10-28 17:15] LABS: LEUKOCYTE ESTERASE ,URINE NEGATIVE (Neg); NITRITES, URINE NEGATIVE (Neg); OCCULT BLOOD,URINE NEGATIVE (Neg)
[2024-10-28 17:27] LABS: UA COLLECTION TYPE URINAL; URINE AMPHETAMINE SCREEN NEGATIVE (Neg); URINE BARBITUATE SCREEN POSITIVE (Neg); URINE BENZODIAZEPINES SCREEN POSITIVE (Neg); URINE CANNABINOID SCREEN POSITIVE (Neg); URINE COCAINE SCREEN NEGATIVE (Neg); URINE METHADONE SCREEN NEGATIVE (Neg); URINE OPIATE SCREEN NEGATIVE (Neg); URINE PHENCYCLIDINE SCREEN NEGATIVE (Neg)
[2024-10-28 17:29] LABS: AMORPHOUS PHOSPHATES 1+; HYALINE CASTS 0-3 /LPF (NEGATIVE); MUCUS STRANDS FEW /LPF (Neg); SQUAMOUS EPITHELIAL CELL,UR FEW /LPF (FEW)
[2024-10-28] MEDS ORDERED: magnesium sulf-water 4G/100mL 100 ML IV PRN (17:45)
[2024-10-28] MEDS ORDERED: magnesium sulf-water 2g/50mL 50 ML IV PRN (17:45)
[2024-10-28] MEDS ORDERED: mag hydrox/Alum hydrox/simeth 30ml oral suspension PO PRN (17:45)
[2024-10-28] MEDS ORDERED: potassium Cl 40MEQ/1/2NS 520ml 520 ML IV PRN (17:45)
[2024-10-28] MEDS ORDERED: magnesium hydroxide 30ml (MOM) UD suspension PO PRN (17:45)
[2024-10-28] MEDS ORDERED: potassium Cl 20 mEq SR tablet PO PRN (17:45)
--- NOTE | 2024-10-28 18:45 | HISTORY AND PHYSICAL-Residence ---
History & Physical Providers to CC Resident Creating Document: IRA GUZMAN, RES ~ History of Present Illness Primary Medical Doctor: none Reason for Admit\Complaint: alcohol seizures History of Present Illness 28 years old with past medical history of alcohol use disorder, alcohol cirrhosis, esophagea varices, comes to ER with seizures,patient experienced seizure yesterday and symptoms got exacerbated and brings him to ER which is associated with postictal tachycardia andhe also mentioned passing stools and urine during the episode ,patient is a heavy alcoholic who used to drink 1 bottle of hard drink every day for a many years and 8 days ago he stopped drinking and 2 days ago he started witnessing symptoms. patient has a history of having multiple seizures and the last one is a month ago for which he is not taking any medications.patient did report patient has history of peptic ulcer disease for which he undergone endoscopy which found out varices- patient also reports having coffee brown color vomiting about a pint in quantity and bright red stools from past 5 days.patient current home meds are pantoprazole, trazadone and folic acid Allergies: Coded Allergies: No Known Allergies (Unverified , 05/27/24) Home Medications Home Medications Active Protonix (Pantoprazole Sodium) 20 Mg Tablet.dr 1 Tab PO DAILY 30 Days Librium (Chlordiazepoxide Hcl) 25 Mg Capsule 1 Cap PO QID PRN 5 Days Diazepam 10 Mg Tablet 1 Tab PO INSTRUCTED PRN 4 Days 1 tablet q 6 hours day 1 1 tablet Q 8 hours day 2 1 tablet q 12 hours day 3 One tablet HS day 4. Ativan (Lorazepam) 1 Mg Tablet 1 Tab PO Q8H B-1 (Thiamine HCl) 100 Mg Tablet 1 Tab PO DAILY 14 Days Pantoprazole Sodium 40 Mg Tablet.dr 40 Mg PO BKF 30 Days Folic Acid* (Folic Acid) Y Tab 1 Mg PO DAILY 14 Days Thera Tablet (Multivitamin with Folic Acid) 400 Mcg Tablet 1 Each PO Q24H 30 Days Past Medical History Past Medical History Alcohol use disorder Cirrhosis Esophageal varices Peptic ulcer disease Past Surgical History Surgical History Comment Partial colectomy when he was a kid Family History Family History: FH: lupus Lupus Past Social History Alcohol Use: Heavy Drug Use: Marijuana Lives with: Family Lives In: Home 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 ) ROS Constitutional: Reports: no symptoms reported; Denies: fever Eyes: Reports: no symptoms reported ENT: Reports: no symptoms reported Respiratory: Reports: cough Cardiovascular: Reports: no symptoms reported Gastrointestinal: Reports: nausea, hematemesis (half a pint quantity ) Genitourinary: Reports: no symptoms reported Male Genitalia: Reports: no symptoms reported Neurological: Reports: tonic-clonic seizures Musculoskeletal: Reports: no symptoms reported Integumentary: Reports: no symptoms reported Allergic/Immunologic: Reports: no symptoms reported Hematologic/Lymphatic: Reports: no symptoms reported Endocrine: Reports: no symptoms reported Psychiatric: Reports: no symptoms reported Exam Vitals: Vital Signs Date Time Temp Pulse Resp B/P (MAP) Pulse Ox O2 Delivery O2 Flow Rate FiO2 10/28/24 17:54 109 18 121/80 (94) 96 0 General: patient is awake, alert , tremlous and in a moderate distress HEENT: dilated,Conjunctiva pink, Sclera clear, Mucus Membranes moist Neck: Supple without masses and tenderness Chest: Lungs clear to auscultation bilaterally., unlaboured Cardiovascular: tachycardic, normal S1, S2 with out murmur, rub , or gallop Abdomen: Soft and mild tender, no organomegalay Extremities: No cyanosis,clubbing or edema. Central Nervous System: B/l Tremors upper extremity tremors are noted on outstretched hand, CN III-XI intact,no sensory defects are noted Skin: warm and dry Diagnostic Data Last Recorded Lab Results: 10/28/24 1540 10/28/24 1540 Additional Plan Alcohol seizure with Alcohol use disorder and Alcohol withdrawal Utox: ethyl alchohol 389, Positive for benzo, phenobarbital H/H: 17.2/48.7, glucose: 130 (On hypoglycemia protocol), ALT:46-54, AST-46-54, ALP- 101-83 ,Albumin-4.6-3.6 BUN:8, Cr:0.76 Started on heavy alcohol withdrawl protocol ordered thiamine inj 200 mg TID/IV Folic acid 1mg IV daily Ordered lactic acid levls Utox: Ethanol 389, Benzodizepine, barbituates +ve Hemetemsis likley due to oesophgeal varcies Hb-17.2 , Hct 48.7 chest x ray - No abnormality demonstrated started on carvidelol 650 mg PO BID Started on protonix 80mg IV stat dose once Started protonix Drip started octerotride drip NPO Midnight and GI Consult tomorrow for EGD Dispositon : patient should be monitored in PCU with telemetry ira [email or web address] [email or web address] Date of Service: Oct 28, 2024 Billing Provider: CAMPOS HUFF MD Common Visit Codes: 49925-CHOVRVH INP/OBS CARE (HIGH) Secondary Visit Codes: [id number] CARE PLAN 30 MINUTES IRA GUZMAN, ALDAIR Oct 28, 2024 18:45 CAMPOS HUFF MD Oct 30, 2024 08:38
[2024-10-28] MEDS: normal saline 1000ml 1,000 ML IV SCH (18:50)
[2024-10-28] MEDS: potassium Cl 20 mEq SR tablet PO PRN (18:56)
[2024-10-28] MEDS: folic acid 1mg/0.2ml inj IV SCH (18:56)
[2024-10-28] MEDS: ondansetron/PF 4mg/2ml inj IV PRN (19:28)
[2024-10-28] MEDS: thiamine 100mg/ml 2ml inj. IV SCH (19:28)
[2024-10-28] MEDS: octreotide inj. 500 MCG in normal saline 100ml IV soln 97.5 ML IV SCH (19:35)
[2024-10-28] MEDS: heparin, porcine 5000 units/ml vial SQ SCH (20:00)
[2024-10-28] MEDS: docusate sod 100mg capsule PO SCH (20:00)
[2024-10-28] MEDS: K and/or MAG REPLACEMENT MC SCH (20:00)
[2024-10-28] MEDS ORDERED: thiamine 100mg/ml 2ml inj. IV SCH (21:00)
[2024-10-28] MEDS: haloperidol lactate 5mg/ml inj IM PRN (21:20)
[2024-10-28 21:56] LABS: MEAN PLATELET VOLUME 6.8 FL (7.4-10.4); RED CELL DISTRIBUTION WIDTH 13.4 % (11.5-14.5)
[2024-10-28 22:44] VITALS: BP 124/74; PULSE 89; RESP 19; TEMP 98.3; O2SAT 95
[2024-10-28] MEDS: pantoprazole 40MG/NS 100ML BAG 100 ML IV SCH (23:05)
[2024-10-29] VITALS (20 sets, daily range): BP systolic 111–139; BP diastolic 54–87; PULSE 50–120; RESP 9–22; TEMP 97.1–99.3; O2SAT 95–100
[2024-10-29] MEDS: normal saline 1000ml 1,000 ML IV SCH (05:45)
[2024-10-29 07:40] LABS: MEAN PLATELET VOLUME 7.4 FL (7.4-10.4); RED CELL DISTRIBUTION WIDTH 13.1 % (11.5-14.5)
[2024-10-29] MEDS ORDERED: dextrose 50%-water 50ml dispensing syringe IV PRN (07:50)
[2024-10-29] MEDS ORDERED: glucagon, human recombinant 1mg kit SUBCUT PRN (07:50)
[2024-10-29] MEDS ORDERED: DEXTROSE 15 GM of carb/4 tabs (each vial/BOTTLE has 4 tablets) PO PRN (07:50)
[2024-10-29 07:54] LABS: INR 1.1 INR
[2024-10-29 08:11] LABS: CREATININE 0.76 MG/DL (0.60-1.10); PHOSPHORUS 3.1 MG/DL (2.3-4.5); TOTAL CARBON DIOXIDE 24.8 MMOL/L (24-32); eCRCL 144 ML/MIN; eGFR > 90 ML/MIN
[2024-10-29] MEDS: dextrose 50%-water 50ml dispensing syringe IV PRN (08:18)
[2024-10-29] MEDS: multivitamins, therapeutics tablet PO SCH (08:27)
[2024-10-29] MEDS: magnesium Cl slow-release 64mg tablet PO PRN (08:39)
[2024-10-29] MEDS ORDERED: MIDAZolam 1 MG/ML 5ML VIAL ONE (10:18)
[2024-10-29] MEDS ORDERED: fentaNYL/PF 50MCG/1 ML 2ML syringe ONE (10:18)
[2024-10-29] MEDS: pantoprazole 40mg Tablet.DR PO SCH (13:05)
--- NOTE | 2024-10-29 16:18 | PROGRESS NOTE- Residence ---
Progress Note - Resident Providers to CC Resident Creating Document: IRA GUZMAN, ALDAIR ~ Antibiotic Timeout Antibiotic Ordered?: No Subjective patient is examined at bedside. he still reports some tremors of upper extrimities and he denies any other complains Objective Vital Signs Date Time Temp Pulse Resp B/P (MAP) Pulse Ox O2 Delivery O2 Flow Rate FiO2 10/29/24 11:30 63 15 125/75 (92) 98 Nasal Cannula 2.0 10/29/24 10:31 97.7 Result Diagram: 10/29/24 0634 10/29/24 0634 patient is awake, alert, orientedx4 HEENT: ,Conjunctiva pink, Sclera clear, Mucus Membranes moist Neck: Supple without masses and tenderness Chest: Lungs clear to auscultation bilaterally., unlaboured Cardiovascular: normal S1, S2 with out murmur, rub , or gallop Abdomen: Soft and mild tender, no organomegalay Extremities: No cyanosis,clubbing or edema. Central Nervous System: B/l Tremors of upper extremity tremors when hands are stretched ,No gross motor and sensory defects Skin: warm and dry Coagulation Studies Laboratory Tests Test 10/29/24 06:34 Prothrombin Time 10.8 SECONDS (9.0-12.0) INR International Normalized Ratio 1.1 INR Coagulation Comments Assessment Assessment 29-year-old male with history of alcohol use disorder, alcohol cirhosis, Oesophageal varices is currently evaluated for alcohol seizures Plan Plan Alcohol seizures with Alcohol use disorder and Alcohol withdrawal Utox: ethyl alchohol 389, Positive for benzo, phenobarbital H/H: 13.6/39.0, glucose: 130 (On hypoglycemia protocol), ALT:46-54, AST-46-54, ALP- 101-83 ,Albumin-4.6-3.6 BUN:8, Cr:0.76 Amylase 48 p: continue heavy alcohol withdrawl protocol Continue thiamine inj 200 mg TID/IV continue Folic acid 1mg IV daily Hemetemsis Rule out oesophgeal varcies EGD: LA grade B refulx esophagitis with no bleeding , congested erthematous and eroded mucosa in gastric body andantrum which is biopsied, Normal duodenal bulb and second part of duodenum Hb-17.2 , Hct 48.7 H/H: 13.6/39.0, MCV;96, chest x ray - No abnormality demonstrated continue on carvidelol 3.25 mg PO BID Held protonix Drip started protonix 40mg po BID Dispositon : patient should be monitored in PCU with telemetry ira [email or web address] [email or web address] Date of Service: Oct 29, 2024 Billing Provider: CAMPOS HUFF MD Common Visit Codes: [id number] INP/OBS CARE(HIGH) IRA GUZMAN, ALDAIR Oct 29, 2024 16:18 CAMPOS HUFF MD Oct 30, 2024 08:39
[2024-10-29] MEDS: DEXTROSE 15 GM of carb/4 tabs (each vial/BOTTLE has 4 tablets) PO PRN (17:14)
--- NOTE | 2024-10-29 21:26 | CONSULTATION ---
DATE OF CONSULTATION: 10/29/2024 DICTATING PHYSICIAN: Aida Neville MD REASON FOR CONSULTATION: Hematemesis. HISTORY OF PRESENT ILLNESS: The patient is 29-year-old, has a history of alcohol use disorder, apparently admitted with alcoholic seizures. That has been treated and he has not had any seizure since then. When he came in, he had a high level of hemoglobin in the 300 range. He also complained of coffee-ground emesis and some passing of red-colored stools since he has been here. Apparently, he does have a history of esophageal varices. He has stopped bleeding after the couple of episodes that he had. He had a hemoglobin of 17 when he came in and after IV fluids ____. Platelet count is within normal limits and PT/INR are normal. PAST MEDICAL HISTORY: As above. FAMILY HISTORY: Noncontributory. PERSONAL HISTORY: Noncontributory. REVIEW OF SYSTEMS: A 12-point review of systems is essentially same as history of present illness. PHYSICAL EXAMINATION: GENERAL: He is asleep, but arousable. He is quite deeply asleep, possibly from seizure medications and postictal state. VITAL SIGNS: Normal. HEART: Normal. LUNG: Normal. ABDOMEN: Soft, nontender. No masses. No organomegaly. Bowel sounds are present. EXTREMITIES: Reveal no clubbing, cyanosis or edema. CENTRAL NERVOUS SYSTEM: Cranial nerves bilaterally within normal limits. HEMATOLOGIC: Reveals no anemia, petechia or purpura. PSYCHOLOGIC: Unable to perform. IMPRESSION: Young man admitted with alcoholic seizures, incidentally has a history of hematemesis and melena, alcohol-induced gastroduodenal mucosal injury is likely, peptic ulcer disease is likely, unlikely it is variceal bleeding because the pattern is not typical for a variceal bleeding. RECOMMENDATIONS: Continue current management including all the medications and diagnostic endoscopy will be planned for this morning. The risks and benefits explained, the patient understands and wishes to proceed. Further recommendations will be made after the endoscopy. Aida Neville MD TID: [id number] RECEIPT: [id number] KRISTOPHER/WILLEM/JAIR
[2024-10-30 02:00] VITALS: BP 125/69; PULSE 57; RESP 16; TEMP 97.8; O2SAT 99
[2024-10-30 06:00] VITALS: BP 131/84; PULSE 84; RESP 18; TEMP 97.8; O2SAT 99
[2024-10-30 08:06] LABS: INR 1.0 INR
[2024-10-30 08:20] LABS: MEAN PLATELET VOLUME 8.0 FL (7.4-10.4); RED CELL DISTRIBUTION WIDTH 13.1 % (11.5-14.5)
[2024-10-30 08:53] LABS: CREATININE 0.83 MG/DL (0.60-1.10); PHOSPHORUS 2.8 MG/DL (2.3-4.5); TOTAL CARBON DIOXIDE 27.6 MMOL/L (24-32); eCRCL 132 ML/MIN; eGFR > 90 ML/MIN
[2024-10-30] MEDS ORDERED: LIDOcaine 2% Viscous 15ml cup ONE (09:21)
[2024-10-30] MEDS: potassium Cl 20 mEq SR tablet PO STA (09:25)
--- NOTE | 2024-10-30 17:53 | DISCHARGE SUMMARY-Residence ---
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 Complications: patient left against medical advice Condition on DC: Unstable Discharge Summary: H/P 28 years old with past medical history of alcohol use disorder, alcohol cirrhosis, esophagea varices, comes to ER with seizures,patient experienced seizure yesterday and symptoms got exacerbated and brings him to ER which is associated with postictal tachycardia andhe also mentioned passing stools and urine during the episode ,patient is a heavy alcoholic who used to drink 1 bottle of hard drink every day for a many years and 8 days ago he stopped drinking and 2 days ago he started witnessing symptoms. patient has a history of having multiple seizures and the last one is a month ago for which he is not taking any medications.patient did report patient has history of peptic ulcer disease for which he undergone endoscopy which found out varices- patient also reports having coffee brown color vomiting about a pint in quantity and bright red stools from past 5 days.patient current home meds are pantoprazole, trazadone and folic acid Hospital course : 28 years old with past medical history of heavy alcohol use disorder, alcohol cirrhosis, esophageal varices comes to ED with seizures , Utox at that shows Ehyl alcoholof 389 and patient is immediatley started on heavy alcohol withdrawl protocol and IV protonix drip, carvidelol po BID . he undergone EGD next day and it ruled out esopheal varices and then patient was transitioned to Po protonix and Patient was still having mild tremors on day 2 but he was showing little improvement and we placed patient on K replacement protcol for his droping blood K and today His K is very low and on protocol and he is still in the middle of recovery but patient decided to leave against medical advice despite telling about his unstable condition. Laboratory Tests Test 10/28/24 20:00 10/28/24 21:32 10/28/24 23:22 10/29/24 06:34 Lactic Acid Level 3.1 MMOL/L 3.6 MMOL/L 2.2 MMOL/L White Blood Count 12.0 X10'3 8.5 X10'3 Red Blood Count 4.35 X10'6 4.07 X10'6 Hemoglobin 14.3 g/dl 13.6 g/dl Hematocrit 41.8 % 39.0 % Mean Corpuscular Volume 96.0 FL 96.0 FL Mean Corpuscular Hemoglobin 32.8 PG 33.4 PG Mean Corpuscular Hemoglobin Concent 34.2 g/dL 34.8 g/dL Red Cell Distribution Width 13.4 % 13.1 % Platelet Count 344 X10'3 295 X10'3 Mean Platelet Volume 6.8 FL 7.4 FL Neutrophils (%) (Auto) 78.6 % 72.9 % Lymphocytes (%) (Auto) 11.9 % 17.5 % Monocytes (%) (Auto) 8.7 % 7.4 % Eosinophils (%) (Auto) 0.5 % 1.9 % Basophils (%) (Auto) 0.3 % 0.3 % Neutrophils # (Auto) 9.4 X10'3 6.2 X10'3 Lymphocytes # (Auto) 1.4 X10'3 1.5 X10'3 Monocytes # (Auto) 1.0 X10'3 0.6 X10'3 Eosinophils # (Auto) 0.1 X10'3 0.2 X10'3 Basophils # (Auto) 0.0 X10'3 0.0 X10'3 CBC Comment Glucometer 83 mg/dl Prothrombin Time 10.8 SECONDS INR International Normalized Ratio 1.1 INR Coagulation Comments Sodium Level 142 MMOL/L Potassium Level 3.7 MMOL/L Chloride Level 104 MMOL/L Carbon Dioxide Level 24.8 MMOL/L Anion Gap 13 Blood Urea Nitrogen 8 MG/DL Creatinine 0.76 MG/DL Estimated GFR/1.73 m2 > 90 ML/MIN BUN/Creatinine Ratio 10.5 Glucose Level 58 MG/DL Calcium Level 8.3 MG/DL Phosphorus Level 3.1 MG/DL Magnesium Level 1.4 MG/DL Total Bilirubin 1.7 MG/DL Aspartate Amino Transf (AST/SGOT) 54 U/L Alanine Aminotransferase (ALT/SGPT) 39 U/L Alkaline Phosphatase 83 IU/L Total Protein 6.4 G/DL Albumin 3.6 G/DL Globulin 2.8 G/DL Albumin/Globulin Ratio 1.3 Amylase Level 48 U/L Lipase 19 U/L Chemistry Comments Test 10/29/24 07:33 10/29/24 08:46 10/29/24 09:27 10/29/24 12:12 Glucometer 69 mg/dl 144 mg/dl 73 mg/dl Lactic Acid Level 1.1 MMOL/L Test 10/29/24 12:54 10/29/24 17:08 10/29/24 17:44 10/29/24 19:09 Glucometer 130 mg/dl 61 mg/dl 120 mg/dl 119 mg/dl Test 10/30/24 06:28 10/30/24 07:29 White Blood Count 5.9 X10'3 Red Blood Count 4.44 X10'6 Hemoglobin 14.6 g/dl Hematocrit 42.5 % Mean Corpuscular Volume 95.8 FL Mean Corpuscular Hemoglobin 33.0 PG Mean Corpuscular Hemoglobin Concent 34.4 g/dL Red Cell Distribution Width 13.1 % Platelet Count 275 X10'3 Mean Platelet Volume 8.0 FL Neutrophils (%) (Auto) 54.2 % Lymphocytes (%) (Auto) 27.0 % Monocytes (%) (Auto) 10.8 % Eosinophils (%) (Auto) 7.7 % Basophils (%) (Auto) 0.3 % Neutrophils # (Auto) 3.2 X10'3 Lymphocytes # (Auto) 1.6 X10'3 Monocytes # (Auto) 0.6 X10'3 Eosinophils # (Auto) 0.5 X10'3 Basophils # (Auto) 0.0 X10'3 CBC Comment Prothrombin Time 10.3 SECONDS INR International Normalized Ratio 1.0 INR Coagulation Comments Sodium Level 135 MMOL/L Potassium Level 2.9 MMOL/L Chloride Level 97 MMOL/L Carbon Dioxide Level 27.6 MMOL/L Anion Gap 10 Blood Urea Nitrogen 2 MG/DL Creatinine 0.83 MG/DL Estimated GFR/1.73 m2 > 90 ML/MIN BUN/Creatinine Ratio 2.4 Glucose Level 114 MG/DL Calcium Level 8.8 MG/DL Phosphorus Level 2.8 MG/DL Magnesium Level 1.8 MG/DL Total Bilirubin 2.1 MG/DL Aspartate Amino Transf (AST/SGOT) 50 U/L Alanine Aminotransferase (ALT/SGPT) 43 U/L Alkaline Phosphatase 83 IU/L Total Protein 6.8 G/DL Albumin 3.5 G/DL Globulin 3.3 G/DL Albumin/Globulin Ratio 1.1 Amylase Level 59 U/L Lipase 30 U/L Chemistry Comments Glucometer 127 mg/dl Vital Signs Date Time Temp Pulse Resp B/P (MAP) Pulse Ox O2 Delivery O2 Flow Rate FiO2 10/30/24 06:30 94 10/30/24 06:00 97.8 18 131/84 (100) 99 10/30/24 06:00 Room Air 10/29/24 11:30 2.0 Discharge course : Patient left against medical advice *Problems/Diagnosis: (1) Alcohol related seizure Status: Acute (2) Alcohol withdrawal seizure Status: Acute Total Time Spent on D/C: Up to 30 Minutes Date of Service: Oct 30, 2024 Billing Provider: PRO GUZMAN RES Common Visit Codes: [id number]/[id number] DISCH DAY >30min PRO GUZMAN RES Oct 30, 2024 17:12 CAMPOS HUFF MD Oct 31, 2024 08:16
== END 2024-10-30 10:13 | disposition left against medical advice (07) | DRG 53 ==
LOC: ER 15:25 → ED HOLD 17:51 → PCU 3S 21:38
PROVIDERS: ADMIT Internal Medicine; ATTEND Internal Medicine
PROC: 0DB78ZX Excision of Stomach, Pylorus, Via Natural or Artificial Opening Endoscopic, Diagnostic (ICD-10-PCS; 2024-10-29)
PROC: 0DB68ZX Excision of Stomach, Via Natural or Artificial Opening Endoscopic, Diagnostic (ICD-10-PCS; principal; 2024-10-29 22:00)
DX: R56.9 Unspecified convulsions (principal); K21.01 Gastro-esophageal reflux disease with esophagitis, with bleeding; K70.30 Alcoholic cirrhosis of liver without ascites; E87.6 Hypokalemia; Z53.21 Procedure and treatment not carried out due to patient leaving prior to being seen by health care provider; F10.10 Alcohol abuse, uncomplicated; Z87.11 Personal history of peptic ulcer disease
CPT/HCPCS: 36415; 43239; 80053; 80305; 80320; 81001; 82150; 82948; 83605; 83690; 83735; 84100; 84145; 85025; 85610; 87081; 93005; 96361; 96372; 96374; 96375; 99152; 99285; A4620; G0378; J1630; J1644; J2060; J2250; J2405; J2470; J3010; J3360; J3411; J3490; J7030; J7040; J7070